=== PATIENT | male | born 1980 | race Caucasian/White ===

== ENCOUNTER 2016-12-07 14:14 | Emergency (ER) | payer OTHER ==
[~2016-12-07] VITALS: Ht 188 cm; Wt 85.7 kg
[2016-12-07 14:19] VITALS: BP 130/79
== END 2016-12-07 15:00 | disposition left against medical advice (07) ==
LOC: ED 14:54
DX: H57.11 Ocular pain, right eye (principal); Z53.21 Procedure and treatment not carried out due to patient leaving prior to being seen by health care provider

== ENCOUNTER 2018-08-29 00:40 | Emergency (ER) | payer SELFPAY ==
[~2018-08-29] VITALS: Ht 188 cm; Wt 91.9 kg
[2018-08-29 00:44] VITALS: BP 146/83
--- NOTE | 2018-08-29 01:13 | NUR ---
PT INJURED LEFT ARM TONIGHT FROM MOVING A BED. PULSES INTACT. XRAYS DONE.
[2018-08-29] MEDS ORDERED: ONDANSETRON 2MG/ML, 2ML ONE (01:36)
--- NOTE | 2018-08-29 02:02 | NUR ---
TASK RN: DC EDUCATION PROVIDED, PT DEMONSTRATES UNDERSTANDING. PT AMBULATED STEADILY TO DC WITH RN AND SO
== END 2018-08-29 02:04 | disposition home or self-care (01) ==
LOC: ED 01:15
DX: S50.11XA Contusion of right forearm, initial encounter (principal); W19.XXXA Unspecified fall, initial encounter; Y93.89 Activity, other specified; Y92.89 Other specified places as the place of occurrence of the external cause; Y99.8 Other external cause status
CPT/HCPCS: 99283

== ENCOUNTER 2019-03-30 13:17 | Emergency (ER) | payer OTHER ==
[~2019-03-30] VITALS: Ht 188 cm; Wt 93.3 kg
--- NOTE | 2019-03-30 13:45 | NUR ---
PT C/O GENERALIZED BODY ACHES, LIGHT HEADEDNESS, AND NAUSEA, SUDDEN ONSET WHILE AT WORK. CHANGED INTO GOWN, IN BED AND ATTACHED TO MONITORS. RESIDENT AT BEDSIDE FOR ASSESSMENT.
[2019-03-30 14:17] LABS: BASOPHILS # (AUTO) 0.07 x10^3/uL (0-0.1); BASOPHILS % (AUTO) 1 % (0-1); EOSINOPHILS # (AUTO) 0.13 x10^3/uL (0-0.4); EOSINOPHILS % (AUTO) 1 % (1-7); LYMPHOCYTES # (AUTO) 1.02 x10^3/uL (1-3.4); LYMPHOCYTES % (AUTO) 7 % (22-44); MD NO; MEAN CORPUSCULAR HEMOGLOBIN 29.6 pg (27.5-34.5); MEAN CORPUSCULAR HGB CONC 32.9 g/dL (33.2-36.2); MEAN CORPUSCULAR VOLUME 89.8 fL (81-97); MEAN PLATELET VOLUME 7.4 fL (7.4-10.4); MONOCYTES # (AUTO) 0.83 x10^3/uL (0.2-0.8); MONOCYTES % (AUTO) 6 % (2-9); NEUTROPHILS % (AUTO) 86 % (42-75); PLATELET COUNT 262 x10^3/uL (130-400); RED BLOOD COUNT 4.67 x10^6/uL (4.38-5.82); RED CELL DISTRIBUTION WIDTH 13.1 % (9.4-14.8)
[2019-03-30 14:29] LABS: ANION GAP 7 mmol/L (5-15); CALCIUM 8.7 mg/dL (8.5-10.1); CHLORIDE 106 mmol/L (98-107); CREATININE 0.94 mg/dL (0.7-1.3)
[2019-03-30 15:07] VITALS: BP 122/72
== END 2019-03-30 15:15 | disposition home or self-care (01) ==
LOC: ED 15:00
DX: L03.113 Cellulitis of right upper limb (principal); F17.210 Nicotine dependence, cigarettes, uncomplicated
CPT/HCPCS: 36415; 80048; 82375; 85025; 93005; 99284

== ENCOUNTER 2019-11-25 21:10 | Emergency (ER) | payer SELFPAY ==
[~2019-11-25] VITALS: Ht 190.5 cm; Wt 95.0 kg
[2019-11-25 21:13] VITALS: BP 132/80
--- NOTE | 2019-11-25 21:20 | NUR ---
PT BIB [facility] AND [facility] FOR LAC TO RIGHT SHOULDER AND AMPUTAION OF RIGHT EAR AFTER FALLING THROUGH A WINDOW. PT DENIES ANY OTHER MEDICAL COMPLAINT. BLEEDING CONTROLLED. HR ELEVATED BUT OTHER VSS. PT IN NAD. PD AT BEDSIDE. CALL LIGHT IN REACH
[2019-11-25] MEDS ORDERED: LIDOCAINE-MPF 2% ,5ML ONE (21:25)
[2019-11-25] MEDS ORDERED: LIDOCAINE-MPF 1%, 5ML INFIL ONE (21:30)
--- NOTE | 2019-11-25 22:15 | NUR ---
pa at bedside suturing.
--- NOTE | 2019-11-25 22:54 | NUR ---
Pt report from Janet hutchinson. This rn to assume care of pt. Pa at bedside suturing. Awaiting d/c.
[2019-11-25] MEDS ORDERED: NEOSPORIN OINT. PKT 1 PACKET ONE (22:55)
== END 2019-11-25 23:31 | disposition home or self-care (01) ==
LOC: ED 21:40
DX: S41.011A Laceration without foreign body of right shoulder, initial encounter (principal); S01.311A Laceration without foreign body of right ear, initial encounter; H93.8X1 Other specified disorders of right ear; R00.0 Tachycardia, unspecified; Z72.9 Problem related to lifestyle, unspecified; W25.XXXA Contact with sharp glass, initial encounter; Y93.89 Activity, other specified; Y92.89 Other specified places as the place of occurrence of the external cause; Y99.8 Other external cause status
CPT/HCPCS: 12032; 12052; 99285